=== PATIENT | male | born 1990 | race Caucasian/White ===

== ENCOUNTER 2016-10-19 17:44 | Emergency (ER) | payer BC, OTHER ==
--- NOTE | 2016-10-19 18:01 | ER Document Report ---
ED Medical Screen (RME) - General Stated Complaint: ARM SWELLING Mode of Arrival: Ambulatory Information source: Patient Notes: c/o left hand bites and swelling that he noticed 2 days ago which seemed to get better. He now complains of 2 bites on right arm with associated swelling that started yesterday. He does not remember a bug biting him because it occurred while he was sleeping. Endorses associated itching but denies any current pain. He has been taking benadryl and using benadryl cream for same. Denies fever, chills, difficulty breathing or SOB. I have greeted and performed a rapid initial assessment of this patient. A comprehensive ED assessment and evaluation of the patient, analysis of test results and completion of the medical decision making process will be conducted by additional ED providers. TRAVEL OUTSIDE OF THE [place] IN LAST 30 DAYS: No - Related Data Allergies/Adverse Reactions: No Known Allergies Allergy (Unverified 06/01/14 05:31) Past Medical History - Immunizations Hx Diphtheria, Pertussis, Tetanus Vaccination: No Physical Exam - Vital signs Vitals: Temp Pulse Resp BP Pulse Ox 97.6 F 62 16 136/67 H 100 10/19/16 17:54 10/19/16 17:54 10/19/16 17:54 10/19/16 17:54 10/19/16 17:54 Course - Vital Signs Vital signs: Temp Pulse Resp BP Pulse Ox 97.6 F 62 16 136/67 H 100 10/19/16 17:54 10/19/16 17:54 10/19/16 17:54 10/19/16 17:54 10/19/16 17:54
--- NOTE | 2016-10-19 19:24 | ER Document Report ---
HPI - HPI Patient complains to provider of: insect bites Onset: Other - 2 days ago Onset/Duration: Sudden Quality of pain: No pain Pain Level: Denies Context: Patient presents to the emergency department with complaints of several insect bites. He has 2 bites to his left dorsal hand 2 bites to his right elbow and a cluster of approximately 3 bites to his right upper thigh. No open sores / wounds. Patient reports that in the areas itch. Pt reports he woke up with the bites. He reports he recently moved to another apartment yesterday and he didn' t wake up with insect bites today. He denies other symptoms such as fever vomiting diarrhea. He has used Benadryl. He is worried that it is MRSA. He denies history of MRSA. He reports someone told him it looked like MRSA. Associated Symptoms: None Exacerbated by: Denies Relieved by: Denies Similar symptoms previously: No Recently seen / treated by doctor: No - CARDIOVASCULAR Cardiovascular: DENIES: Chest pain - DERM Skin Color: Normal Past Medical History - General Information source: Patient - Social History Smoking Status: Current Some Day Smoker Chew tobacco use (# tins/day): No Frequency of alcohol use: Occasional Lives with: Family Family History: None Patient has suicidal ideation: No - Medical History Medical History: Negative Renal/ Medical History: Denies: Hx Peritoneal Dialysis Surgical Hx: Negative - Immunizations Hx Diphtheria, Pertussis, Tetanus Vaccination: No Vertical Provider Document - CONSTITUTIONAL Agree With Documented VS: Yes Exam Limitations: No Limitations General Appearance: WD/WN, No Apparent Distress - INFECTION CONTROL TRAVEL OUTSIDE OF THE [place] IN LAST 30 DAYS: No - HEENT HEENT: Atraumatic, Normocephalic - NECK Neck: Normal Inspection, Supple - RESPIRATORY Respiratory: Breath Sounds Normal, No Respiratory Distress O2 Sat by Pulse Oximetry: 100 - CARDIOVASCULAR Cardiovascular: Regular Rate - MUSCULOSKELETAL/EXTREMETIES Musculoskeletal/Extremeties: MAEW, FROM, Non-Tender - NEURO Level of Consciousness: Awake, Alert, Appropriate Motor/Sensory: No Motor Deficit - DERM Integumentary: Warm, Dry Adult Front & Back Diagram: 1 - two insect bites 2 - 2 insect bites 3 - cluster of insect bites Notes: no induration, no swelling/no warmth/no pustule, no drainage Course - Re-evaluation Re-evalutation: 10/19/16 19:34 Patient instructed on importance of keeping areas clean cautioned not to itchy areas. Patient was also instructed on signs and symptoms of infection. - Vital Signs Vital signs: Temp Pulse Resp BP Pulse Ox 97.6 F 62 16 136/67 H 100 10/19/16 17:54 10/19/16 17:54 10/19/16 17:54 10/19/16 17:54 10/19/16 17:54 Discharge - Discharge Clinical Impression: Elevated blood pressure reading Insect bites Qualifiers: Encounter type: initial encounter Qualified Code(s): W57.XXXA - Bitten or stung by nonvenomous insect and other nonvenomous arthropods, initial encounter Condition: Stable Disposition: HOME, SELF-CARE Instructions: Use of Diphenhydramine, Insect Bites ([facility]) Additional Instructions: *You have been treated for multiple insect bites *Take benadryl as indicated *Do not itch the sites, keep your hands clean, apply cool packs to areas that itch *Monitor the site for signs of infection such as increasing pain, redness, swelling, warmth *Follow up with a primary care provider within one week for recheck *Monitor your blood pressure. Your blood pressure was elevated today. This may be because you were anxious, in pain or because you need medication. It is important to follow up with your primary care provider for full evaluation. *Return to ED for signs of infection, worsening condition, changes, needs Forms: Elevated Blood Pressure, Return to Work
[2016-10-19 19:44] VITALS: BP 124/76
== END 2016-10-19 19:56 | disposition home or self-care (01) ==
LOC: ER 17:44
DX: S60.562A Insect bite (nonvenomous) of left hand, initial encounter (principal); S70.361A Insect bite (nonvenomous), right thigh, initial encounter; S50.361A Insect bite (nonvenomous) of right elbow, initial encounter; W57.XXXA Bitten or stung by nonvenomous insect and other nonvenomous arthropods, initial encounter; R03.0 Elevated blood-pressure reading, without diagnosis of hypertension; F17.200 Nicotine dependence, unspecified, uncomplicated
CPT/HCPCS: 99283